=== PATIENT | female | born 1960 | race Caucasian/White ===

== ENCOUNTER → 2016-10-12 | Outpatient (CLI) | payer OTHER | LOC: BMCIMAGING 08:18 | DX: Z12.31 Encounter for screening mammogram for malignant neoplasm of breast (principal) | CPT/HCPCS: G0202 ==

== ENCOUNTER 2018-01-15 11:27 | Emergency (ER) | payer OTHER ==
[2018-01-15 11:33] VITALS: BP 109/81
[2018-01-15] MEDS ORDERED: CEPHALEXIN 500 MG CAP PO ONE (11:44)
[2018-01-15] MEDS ORDERED: predniSONE 20 MG TAB PO ONE (11:44)
--- NOTE | 2018-01-15 11:44 | EDPHY ---
H & P Stated Complaint: localized reaction l forearm to wasp sting tuesday Source: Patient Exam Limitations: No limitations - Personal History Current Tetanus Diphtheria and Acellular Pertussis (TDAP): Yes Tetanus Vaccine Date: 2009 - Medical/Surgical History Hx Asthma: No Hx Chronic Respiratory Disease: No Hx Diabetes: No Hx Cardiac Disease: No Hx Renal Disease: No Hx Cirrhosis: No Hx Alcoholism: No Hx HIV/AIDS: No Hx Splenectomy or Spleen Trauma: No Other PMH: denies - Social History Smoking Status: Never smoked Time Seen by Provider: 01/15/18 11:41 HPI/ROS: HPI: This is a 57-year-old female who presents with Chief Complaint: localized reaction l forearm to wasp sting Tuesday Location: Left hand/forearm Quality: Wasp sting Duration:2 days ago Signs and Symptoms: No bleeding, no radiation, no numbness, no weakness, no tingling, no incontinence, no decreased range of motion,+ swelling, no pain, no fever Timing: Acute, gradually worsening Severity: Moderate Context: Patient is right-hand dominant, presents with being stung by a wasps on Tuesday approximately 2 days ago on her left hand. She reports that she was stung multiple times. Over the last 1-2 days she has noted progressive swelling that moved from her hand now up into her left forearm. She denies any radiation, warmth, weakness, paresthesias. She has no history of anaphylaxis. She took ibuprofen without any relief. Modifying Factors: See above Comment: ROS: see HPI Constitutional: No fever, no chills, no weight loss Eyes: No blurred vision Respiratory: No shortness of breath, no cough Cardiovascular: No chest pain Gastrointestinal: No nausea, no vomiting no diarrhea Genitourinary: No dysuria Extremities: No myalgias Neurologic: No weakness, no numbness Skin: No rashes Hematologic: No bruising, no bleeding MEDICAL/SURGICAL/SOCIAL HISTORY: Medical history: Generally healthy. Does not take any regular medications. Surgical history: Denies Social history: . CONSTITUTIONAL: Adult white female, nontoxic in appearance, awake and alert, no obvious distress HEENT: Atraumatic and normocephalic, PERRL, EOMI. Nares patent; no rhinorrhea; no nasal mucosal edema. Tympanic membranes clear. Oropharynx clear, no exudate and moist pink mucosa. Airway patent. No lymphadenopathy. No meningismus. Cardiovascular: Normal S1/S2, regular rate, regular rhythm, without murmur rub or gallop. PULMONARY/CHEST: Symmetrical and nontender. Clear to auscultation bilaterally. Good air movement. No accessory muscle usage. ABDOMEN: Soft, nondistended, nontender, no rebound, no guarding, no peritoneal signs, no masses or organomegaly. No CVAT. EXTREMITIES: 2/2 pulses, strength 5/5, left hand and forearm shows mild cellulitis with mild swelling. Left WRIST: Extension to 70, flexion to 80, radial deviation to 20 degree, ulnar deviation to 30, no scaphoid tenderness, no tenderness over ulnar styloid, no tenderness over radial styloid, no pain with Ochoa test, no pain with Phalen test, no pain with Tinel test. Normal range of motion of the IP, PIP, MCP joints. no deformities, no clubbing, no cyanosis or edema. NEUROLOGICAL: no focal neuro deficits. GCS 15. SKIN: Warm and dry, no erythema. no rash. Good capillary refill. (Ann Shaffer) Constitutional: Initial Vital Signs Temperature (C) 36.4 C 01/15/18 11:30 Heart Rate 66 01/15/18 11:30 Respiratory Rate 16 01/15/18 11:30 Blood Pressure 109/81 H 01/15/18 11:30 O2 Sat (%) 98 01/15/18 11:30 O2 Delivery Mode Room Air Allergies/Adverse Reactions: tiotropium bromide [From [facility] with Handi[employer]er] Allergy (Intermediate, Verified 01/15/18 11:29) Home Medications: Medication Instructions Recorded Renetta Allergy 01/15/18 Cephalexin [Keflex (*)] 500 mg PO TID #21 cap 01/15/18 predniSONE [predniSONE TAPER] 10 mg PO DAILY 6 Days ea 01/15/18 Medical Decision Making ED Course/Re-evaluation: No signs of angioedema, anaphylaxis, respiratory distress, airway compromise. Vital signs reviewed upon arrival and are stable. Given Benadryl 50 mg, prednisone 60 mg and Keflex 500 mg. No signs of neurovascular compromise/tenting of skin/compartment syndrome/ extremities and joints examined above and below area of concern and are neurovascularly intact. This patient was seen under the supervision of my secondary supervising physician. I evaluated care for this patient independently. Discussed this patient with Dr. Hand who did not see the patient. (Ann Shaffer) The patient was evaluated and managed by the physician certified first assistant. I have reviewed this chart and I agree with the findings and plan of care as documented , as indicated by my signature. I am the secondary supervising physician. ( Jovana Hand) Differential Diagnosis: Differential diagnosis includes but is not limited to cellulitis, tenosynovitis , anaphylaxis. (Ann Shaffer) - Data Points Medications Given: Discontinued Medications Cephalexin HCl (Keflex) 500 mg PO EDNOW ONE PRN Reason: Protocol Stop: 01/15/18 11:45 Last Admin: 01/15/18 11:56 Dose: 500 mg Prednisone (Prednisone) 60 mg PO EDNOW ONE Stop: 01/15/18 11:45 Last Admin: 01/15/18 11:56 Dose: 60 mg Departure - Departure Disposition: Home, Routine, Self-Care Clinical Impression: Wasp sting Condition: Good Instructions: Cephalexin (By mouth), Cellulitis (ED), Insect Bite or Sting (ED) Additional Instructions: Take Tylenol 650 mg every 4 hours and/or Ibuprofen 600 mg every 8 hours with food as needed for pain. Take Benadryl 25 mg every 8 hr for the next 2 days. Apply ice for 30 minutes at a time; 2-3 times per day for the next 1-2 days. Take Keflex 500 mg 3 times a day x7 days. Take Prednisone taper as directed for the next 6 days. Return to the ER immediately if you experience redness, red streaks, have fevers /chills, flu like symptoms, limited range of motion, or any other symptoms that concern you. Referrals: Gonzalo Dixon MD [Primary Care Provider] - 3-4 days, if not improved Prescriptions: Cephalexin [Keflex (*)] 500 mg PO TID #21 cap predniSONE [predniSONE TAPER] 10 mg PO DAILY 6 Days ea
[2018-01-15] MEDS ORDERED: diphenhydrAMINE 25 MG CAP PO ONE ×2 (12:06→12:07)
== END 2018-01-15 12:19 | disposition home or self-care (01) ==
DX: T63.461A Toxic effect of venom of wasps, accidental (unintentional), initial encounter (principal)
CPT/HCPCS: J7512

== ENCOUNTER → 2018-08-09 | Outpatient (CLI) | payer OTHER | LOC: BMCIMAGING 09:35 | PROVIDERS: ATTEND Family Medicine | DX: M70.22 Olecranon bursitis, left elbow (principal) ==